=== PATIENT | female | born 1950 | race Caucasian/White ===

== ENCOUNTER → 2019-03-14 15:40 | Outpatient (CLI) | payer OTHER, SELFPAY ==
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
== END ==
PROVIDERS: PCP Internal Medicine; Visit Provider Chiropractor
DX: M50.320 Other cervical disc degeneration, mid-cervical region, unspecified level (principal); M47.812 Spondylosis without myelopathy or radiculopathy, cervical region
CPT/HCPCS: 72050

== ENCOUNTER → 2020-04-18 15:18 | Outpatient (CLI) | payer MEDICARE, OTHER, SELFPAY ==
--- NOTE | 2020-04-18 15:25 | DI.RAD.S_ITS ---
PROCEDURE: XR LUMBAR SPINE 2-3V INDICATIONS: OSTEOARTHRITIS TECHNIQUE: 2 views of the lumbar spine were acquired. COMPARISON: None. FINDINGS: Bones: There are 5 [id number] lumbar vertebral bodies. There is grade 1 L4 on L5 anterolisthesis. Mild intervertebral disc space narrowing and facet sclerosis is present from L3-S1. No compression deformities. Soft tissues: Overlying bowel gas pattern is normal. No suspicious soft tissue calcifications. IMPRESSION: Mild osteoarthritis and spondylolisthesis. Dictated by: Kaylin Dickerson M.D. on 04/18/2020 at 16:23 Approved by: Kaylin Dickerson M.D. on 04/18/2020 at 16:24
--- NOTE | 2020-04-18 15:25 | DI.RAD.S_ITS ---
PROCEDURE: XR HIP W PEL IF DONE BILAT 2V INDICATIONS: OSTEOARTHRITIS TECHNIQUE: AP pelvis with lateral view(s) of the bilateral hip(s). COMPARISON: None. FINDINGS: Bones: No fractures or dislocations. Pelvic ring appears intact. No suspicious bony lesions. Right hip arthroplasty is intact. Soft tissues: The visualized bowel gas pattern is normal. No suspicious soft tissue calcifications. IMPRESSION: No acute radiographic findings. No joint space narrowing or osteophytosis to suggest left hip osteoarthritis. Dictated by: Kaylin Dickerson M.D. on 04/18/2020 at 16:22 Approved by: Kaylin Dickerson M.D. on 04/18/2020 at 16:23
--- NOTE | 2020-04-18 15:25 | DI.RAD.S_ITS ---
PROCEDURE: XR KNEE RT 3V INDICATIONS: OSTEOARTHRITIS TECHNIQUE: 3 views of the knee were acquired. COMPARISON: None. FINDINGS: Bones: There is mild femorotibial joint space narrowing. No acute fracture or dislocation. Soft tissues: No joint effusion. No suspicious soft tissue calcifications. IMPRESSION: Mild osteoarthritis. Dictated by: Kaylin Dickerson M.D. on 04/18/2020 at 16:23 Approved by: Kaylin Dickerson M.D. on 04/18/2020 at 16:23
== END ==
PROVIDERS: PCP Internal Medicine; Referring Provider Internal Medicine; Visit Provider Internal Medicine
DX: M17.11 Unilateral primary osteoarthritis, right knee (principal); M47.816 Spondylosis without myelopathy or radiculopathy, lumbar region; M43.16 Spondylolisthesis, lumbar region; Z96.641 Presence of right artificial hip joint
CPT/HCPCS: 72100; 73521; 73562

== ENCOUNTER → 2020-05-13 15:48 | Outpatient (CLI) | payer MEDICARE, OTHER, SELFPAY ==
--- NOTE | 2020-05-13 | DI.MG.S_ITS ---
BILATERAL DIGITAL SCREENING MAMMOGRAM 3D/2D WITH CAD: 05/13/2020 CLINICAL: Routine screening. Baseline exam. No prior exams were available for comparison. The tissue of both breasts is heterogeneously dense. This may lower the sensitivity of mammography. Current study was also evaluated with a Computer Aided Detection (CAD) system. There is a focal asymmetry in the left breast at 11 o'clock posterior depth. No other significant masses, calcifications, or other findings are seen in either breast. IMPRESSION: INCOMPLETE: NEEDS ADDITIONAL IMAGING EVALUATION The focal asymmetry in the left breast is indeterminate. Additional views with possible ultrasound are recommended. This exam was interpreted at Station ID: [id number]. NOTE: For mammograms, a report in lay terms will be sent to the patient. Approximately 15% of breast malignancies will not be visualized mammographically. In the management of a palpable breast mass, a negative mammogram must not discourage biopsy of a clinically suspicious lesion. Electronically Signed By: Kaylin Dickerson M.D. lk/:05/13/2020 16:29:03 letter sent: Additional Imaging Needed ACR BI-RADS Category 0: Incomplete [id number]
== END ==
PROVIDERS: PCP Internal Medicine; Referring Provider Internal Medicine; Visit Provider Internal Medicine
DX: Z12.31 Encounter for screening mammogram for malignant neoplasm of breast (principal)
CPT/HCPCS: 77063; 77067

== ENCOUNTER → 2022-01-06 09:46 | Outpatient (CLI) | payer MEDICARE, OTHER, SELFPAY ==
[2022-01-06 10:44] LABS: Hematocrit 39.5 % (36-46); Hemoglobin 13.3 g/dL (12.0-16.0); Mean Corpuscular HGB Conc 33.7 % (30-36); Mean Corpuscular Hemoglobin 30.7 PG (26-34); Mean Corpuscular Volume 91.1 fL (80-100); Platelet Count 212 X10^3/uL (150-400); Red Blood Cell Count 4.34 X10^6/uL (4.0-5.2); Red Cell Distribution Width 12.6 % (11.6-14.8)
[2022-01-06 12:44] LABS: Alanine Aminotransferase 30 IU/L (<35); Albumin 4.3 g/dL (3.5-5.0); Albumin Globulin Ratio 1.5 (1.0-2.8); Alkaline Phosphatase 73 U/L (38-126); Aspartate Aminotransferase 38 IU/L (14-36); BUN Creatinine Ratio 24.6 (6-22); Bilirubin Total 0.6 mg/dL (0.2-1.3); Blood Urea Nitrogen 15 mg/dL (7-17); Calcium 8.9 mg/dL (8.4-10.2); Carbon Dioxide 28 mmol/L (22-32); Chloride 101 mmol/L (98-107); Cholesterol 242 mg/dL (140-199); Estimated Glomerular Filt Rate > 60 mL/min (>60); Globulin 2.9 g/dL (1.7-4.1); Glucose 85 mg/dL (80-110); HDL Cholesterol 77 mg/dL (40-60); HEMOLYSIS < 15 (0-50); LDL Cholesterol Calculated 150 mg/dL (<100); Potassium 4.3 mmol/L (3.4-5.1); Sodium 136 mmol/L (137-145); Total Protein 7.2 g/dL (6.3-8.2); Triglycerides 73 mg/dL (35-150)
[2022-01-06 13:10] LABS: TSH w/ Reflex to FT4 1.19 uIU/mL (0.47-4.68)
== END ==
PROVIDERS: PCP Internal Medicine; Referring Provider Internal Medicine; Visit Provider Internal Medicine
DX: E78.2 Mixed hyperlipidemia (principal); M15.9 Polyosteoarthritis, unspecified
CPT/HCPCS: 36415; 80053; 80061; 84443; 85027

== ENCOUNTER → 2022-03-24 14:05 | Outpatient (CLI) | payer MEDICARE, OTHER, SELFPAY ==
--- NOTE | 2022-03-24 14:06 | DI.RAD.S_ITS ---
PROCEDURE: XR DEXA AXIAL SKELETON INDICATIONS: post-menopausal COMPARISON: None. FINDINGS: This blank DEXA report has been sent in error by the PACS system. The correct and complete report will be forthcoming in 1-2 days. Thank you for your patience and understanding. Dictated by: Berry Raymond M.D. on 03/24/2022 at 16:19 Approved by: Berry Raymond M.D. on 03/24/2022 at 16:19
== END ==
PROVIDERS: PCP Internal Medicine; Referring Provider Internal Medicine; Visit Provider Internal Medicine
DX: Z78.0 Asymptomatic menopausal state (principal); Z13.820 Encounter for screening for osteoporosis; M81.0 Age-related osteoporosis without current pathological fracture
CPT/HCPCS: 77080; 77081

== ENCOUNTER → 2022-04-27 13:30 | Outpatient (CLI) | payer MEDICARE, OTHER, SELFPAY ==
--- NOTE | 2022-04-27 13:33 | DI.RAD.S_ITS ---
PROCEDURE: XR HIP W PEL IF DONE LT MIN 4V INDICATIONS: hip pain TECHNIQUE: AP pelvis and lateral view of the right hip acquired. COMPARISON: [facility], [place], XR HIP W PEL IF DONE BILAT 2V, 04/18/2020, 15:17. FINDINGS: Bones: Patient is status post right hip arthroplasty, with hardware components in expected positions. The hip joint appears congruent. The visualized bony structures appear intact. Soft tissues: Overlying postoperative changes are noted. No suspicious soft tissue densities. IMPRESSION: 1. Postoperative changes of total right hip replacement. 2. No acute abnormality. Dictated by: Vineet Melvin M.D. on 04/27/2022 at 16:38 Approved by: Vineet Melvin M.D. on 04/27/2022 at 16:40
== END ==
PROVIDERS: PCP Internal Medicine; Referring Provider Internal Medicine; Visit Provider Internal Medicine
DX: M48.07 Spinal stenosis, lumbosacral region (principal); M15.9 Polyosteoarthritis, unspecified; M25.551 Pain in right hip; M25.552 Pain in left hip; Z96.641 Presence of right artificial hip joint
CPT/HCPCS: 73522

== ENCOUNTER → 2022-06-18 09:25 | Outpatient (CLI) | payer MEDICARE, OTHER, SELFPAY ==
[2022-06-18 12:56] LABS: Appearance Urine UA CLEAR; Bilirubin Urine UA NEGATIVE (NEGATIVE); Color Urine UA YELLOW; Glucose Urine UA TRACE g/dL (Negative); Ketones Urine UA NEGATIVE (NEGATIVE); Leukocyte Esterase Urine UA NEGATIVE (NEGATIVE); Nitrite Urine UA NEGATIVE (Negative); Occult Blood Urine UA 1+ (Negative); Protein Urine UA NEGATIVE (Negative); Specific Gravity Urine UA <=1.005 (1.000-1.035); Urobilinogen Urine UA 0.2 E.U./dL (0.2)
[2022-06-18 13:06] LABS: pH Urine UA 5.5 (4.5-8.0)
[2022-06-18 13:17] LABS: Bacteria Urine None Seen; Culture Indicated Urine Cult Not Indicated; RBC Urine 0-1/HPF (0-5/HPF); Squamous Epithelial Cell Urine None Seen (0-5/HPF); WBC Urine None Seen (0-5/HPF)
== END ==
PROVIDERS: PCP Internal Medicine; Referring Provider Internal Medicine; Visit Provider Internal Medicine
DX: R30.0 Dysuria (principal)
CPT/HCPCS: 81001

== ENCOUNTER → 2022-08-13 09:10 | Outpatient (CLI) | payer MEDICARE, OTHER, SELFPAY ==
[2022-08-13 10:11] LABS: Hematocrit 36.6 % (36-46); Hemoglobin 12.4 g/dL (12.0-16.0); Mean Corpuscular HGB Conc 33.9 % (30-36); Mean Corpuscular Hemoglobin 30.8 PG (26-34); Platelet Count 277 X10^3/uL (150-400); Red Blood Cell Count 4.03 X10^6/uL (4.0-5.2); Red Cell Distribution Width 13.8 % (11.6-14.8); White Blood Cell Count 6.1 X10^3/uL (4.5-11.0)
[2022-08-13 10:35] LABS: Alanine Aminotransferase 18 IU/L (<35); Albumin 3.9 g/dL (3.5-5.0); Albumin Globulin Ratio 1.3 (1.0-2.8); Alkaline Phosphatase 92 U/L (38-126); Aspartate Aminotransferase 23 IU/L (14-36); BUN Creatinine Ratio 17.7 (6-22); Bilirubin Total 0.4 mg/dL (0.2-1.3); Blood Urea Nitrogen 11 mg/dL (7-17); Calcium 9.1 mg/dL (8.4-10.2); Carbon Dioxide 30 mmol/L (22-32); Chloride 97 mmol/L (98-107); Estimated Glomerular Filt Rate > 60 mL/min (>60); Glucose 82 mg/dL (80-110); HEMOLYSIS < 15 (0-50); Potassium 4.1 mmol/L (3.4-5.1); Sodium 136 mmol/L (137-145); Total Protein 6.9 g/dL (6.3-8.2)
[2022-08-13 11:05] LABS: Vitamin D 25 Hydroxy (D3) 64.7 ng/mL (30.0-100.0)
== END ==
PROVIDERS: PCP Internal Medicine; Referring Provider Internal Medicine; Visit Provider Internal Medicine
DX: R53.83 Other fatigue (principal); E55.9 Vitamin D deficiency, unspecified
CPT/HCPCS: 36415; 80053; 82306; 84439; 84443; 85027

== ENCOUNTER 2025-01-24 13:45 | Outpatient (RCR) | payer MEDICARE, OTHER, SELFPAY ==
--- NOTE | 2024-11-13 16:00 | PT.OIE ---
Current Diagnoses Stress incontinence (female) (male) (11/13/24) Incomplete uterovaginal prolapse (11/13/24) Pelvic muscle wasting (11/13/24) Past Medical History (Last Updated 01/12/23 @ 11:47 by Ranulfo Jack MD) Age-related osteoporosis without current pathological fracture Allergic rhinitis Cataracts, bilateral Chicken pox Essential hypertension History of colonic polyps Lumbar adjacent segment disease with spondylolisthesis Measles Migraines Mixed hyperlipidemia Mumps Primary osteoarthritis involving multiple joints Spinal stenosis, lumbosacral region Tinnitus Past Surgical History (Last Reviewed 01/12/23 @ 02:11 by Ranulfo Jack MD) Anesthesia History of right hip replacement (~06/2017) History of tonsillectomy S/P laminectomy Status post breast biopsy Visit Care Team Role Provider Type Ranulfo Jack MD Primary Care Provider Physician Specialty: Internal Medicine Address: [address] [place] [address] Email: [email or web address] Pat Samson MD Attending Provider Non-Staff Family Provider Referring Provider Specialty: Family Practice Address: [address] [place] [address] Email: Physical Therapy Initial Evaluation PT-OP-A Visit Information Start: 11/12/24 08:36 Freq: Status: Active Protocol: Document 11/13/24 14:32 [facility] (Rec: 11/13/24 14:57 [facility] [id number]) Out-Patient Physical Therapy Visit Information Visit Information Visit Type Initial Evaluation Visit Start Time 14:30 Visit Stop Time 15:15 Visit Number 1 Evaluation Information Evaluation Date 11/13/24 PT-OP-B Current Condition Start: 11/12/24 08:36 Freq: Status: Active Protocol: Document 11/13/24 14:32 [facility] (Rec: 11/13/24 14:57 [facility] [id number]) Current Condition History of Current Condition Onset Date 3-6 months ago Current Complaints pelvic pressure and heaviness History of Current Condition pt reports approx 3-6 months ago she started feeling prolapse symptoms, before that she had a very bad cough and was moving. She was in [place] last April and she came down with a bad cough prior to coming back to the [facility]. 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 The leakage happens when she doesn't get to the bathroom soon enough. She at times experiences urgency. She did get a prescription from urology for estrogen cream but hasn't been using it yet. Pt reports when she wakes up in the am she feels fine and by the end of the day she is experiencing a lot of pressure Treatment Goals Patient/Caregiver Goals Treatment goals include reducing pelvic pressure and heaviness PT-OP-C Subjective Start: 11/12/24 08:36 Freq: Status: Active Protocol: Document 11/13/24 14:30 [facility] (Rec: 11/15/24 15:03 [facility] [id number]) Patient Questionnaires Pelvic Pain and Urgency/Frequency Patient Symptom Scale Pelvic Pain Score 9 PT-OP-I Pelvic Floor Start: 11/12/24 08:36 Freq: Status: Active Protocol: Document 11/13/24 14:30 [facility] (Rec: 11/15/24 15:06 [facility] [id number]) Pelvic Floor Assessment Pelvic Clock Pelvic Clock 12-3 Atrophy Pelvic Clock 3-6 Atrophy Pelvic Clock 6-9 Atrophy Pelvic Clock 9-12 Atrophy Prolapse Uterine Prolapse Grade 2 Cystocele Grade 2 Prolapse Comments uterovaginal prolapse Contraction Ability Voluntary Contraction Weak Voluntary Relaxation Weak Manual Muscle Testing Left 2 Manual Muscle Testing Right 2 Manual Muscle Testing Anterior 2 Manual Muscle Testing Posterior 2 Muscle Endurance (Seconds) 3 Comments Pelvic Floor Comments vaginal atrophy, levator ani weakness and decreased endurance PT-OP-Q Treatments Start: 11/12/24 08:36 Freq: Status: Active Protocol: Document 11/13/24 14:32 [facility] (Rec: 11/13/24 14:57 [facility] [id number]) Therapeutic Exercises Supine Exercises pelvic floor long holds Supine Exercise Name pt has a yoga block at home to use as a assist Reps/Minutes 10 reps holding 10 seconds and relax x 10 sec Comments pt was also cued with a ball for adductor assist Self-Care/Home Management Treatment Education Patient Education Pain Management Other Education pt was educated in using a wedge to decompress the pelvis and also for when she is doing her pelvic floor exercises. PT-OP-T Assessment and Plan Start: 11/12/24 08:36 Freq: Status: Active Protocol: Document 11/13/24 14:30 [facility] (Rec: 11/13/24 14:57 [facility] [id number]) Physical Therapy Assessment Rehab Potential Rehabilitation Potential Excellent Evaluation Complexity Number of Personal Factors/Comorbidities 1-2 Number of Body Systems Impaired 3 Clinical Presentation at Evaluation Evolving Impairments Impairments Activity Tolerance,Functional Activities,Pain,Soft Tissue Mobility,Strength,Tone Other Impairments pelvic pressure and heaviness from bladder prolapse that is worse at the end of each day Urinary stress incontinence approx 4 times per week Goals 3 Impairment Pelvic pressure and heaviness with pelvic organ prolapse Automation Operator Goal (LTG) Mauricio reports decreased complaints of pelvic pressure and heaviness and is able to brace with her pelvic floor prior to coughing and lifting activities LTG Duration 12 weeks 2 Impairment Decreased pelvic floor endurance Short Term Goal (STG) Mauricio is able to sustain a pelvic floor contraction in supine x 10 seconds STG Duration 4 weeks Skilled Nursing Goal (LTG) Mauricio is able to sustain a pelvic floor contraction in sitting x 5 seconds LTG Duration 8 weeks One Impairment vaginal atrophy with pelvic floor weakness Short Term Goal (STG) pt is educated on pelvic floor strengthening exercises to improve strength and tone of the pelvic floor STG Duration 4 weeks Skilled Nursing Goal (LTG) Mauricio presents with improved strength and tone of the pelvic floor and her MMT is improved to 3/5 or better for pelvic floor contractions LTG Duration 12 weeks Assessment Summary Assessment Mauricio is a 73 year female referred to PT today with chief complaint of pelvic pressure and heaviness with pelvic organ prolapse. Her heaviness is worse at the end of the day. She is also experiencing urinary stress incontinence approx 4 times per week. She experiences leakage that includes wetting through the underwear. If she waits to long to void she will also experience leakage. Her symptoms began 3-6 months ago after she had a bad cough for a period of time and then was moving and lifting more than she was used to. Mauricio notes she has been given estrogen cream but hasn't been using it yet. I did encourage her to use the estrogen cream as it can be very helpful with the vaginal atrophy With pelvic floor exam she presents with atrophy of the pelvic floor. She is weak throughout the pelvic floor muscles and test 2/5 MMT. Mauricio presents with decreased endurance of the pelvic floor and has difficulty holding more than 4 seconds in supine. I did use adductor assist today to help her facilitate her pelvic floor and she did well with this. She was also shown how to decompress her pelvis using a wedge to take pressure off and rest her pelvis. Mauricio is a good candidate for Pelvic floor PT. Physical Therapy Plan Frequency and Duration Frequency of Treatment 1x/Week Duration of treatment (weeks) 12 Plan of Care Start Date 11/13/24 Plan of Care End Date 02/05/25 Therapeutic Interventions Therapeutic Interventions Home Exercise Program,Manual Therapy,Neuromuscular Re- education,Self-Care/Home Management,Soft Tissue Mobilization,Therapeutic Exercises Modalities Biofeedback Next Visit Focus/Plan Next Note Type Treatment Note Next Visit Plan check in with how pt did with pelvic decompression positions pelvic floor strength and endurance training next visit
--- NOTE | 2024-11-21 13:43 | PT.OTN ---
Current Diagnoses Stress incontinence (female) (male) (11/20/24) Incomplete uterovaginal prolapse (11/20/24) Pelvic muscle wasting (11/20/24) Physical Therapy Treatment Note PT-OP-A Visit Information Start: 11/12/24 08:36 Freq: Status: Active Protocol: Document 11/20/24 14:35 [facility] (Rec: 11/20/24 15:27 [facility] [id number]) Out-Patient Physical Therapy Visit Information Visit Information Visit Type Treatment Note Visit Start Time 14:35 Visit Stop Time 15:15 Visit Number 2 Evaluation Information Evaluation Date 11/13/24 PT-OP-B Current Condition Start: 11/12/24 08:36 Freq: Status: Active Protocol: Document 11/13/24 14:32 [facility] (Rec: 11/13/24 14:57 [facility] [id number]) Current Condition History of Current Condition Onset Date 3-6 months ago Current Complaints pelvic pressure and heaviness History of Current Condition pt reports approx 3-6 months ago she started feeling prolapse symptoms, before that she had a very bad cough and was moving. She was in [place] last April and she came down with a bad cough prior to coming back to the [facility]. 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 The leakage happens when she doesn't get to the bathroom soon enough. She at times experiences urgency. She did get a prescription from urology for estrogen cream but hasn't been using it yet. Pt reports when she wakes up in the am she feels fine and by the end of the day she is experiencing a lot of pressure Treatment Goals Patient/Caregiver Goals Treatment goals include reducing pelvic pressure and heaviness PT-OP-C Subjective Start: 11/12/24 08:36 Freq: Status: Active Protocol: Document 11/20/24 14:35 [facility] (Rec: 11/20/24 15:27 [facility] [id number]) OP-PT Subjective Patient Comments Patient Comments pt notes she has tried the yoga block as a assist as well PT-OP-I Pelvic Floor Start: 11/12/24 08:36 Freq: Status: Active Protocol: Document 11/13/24 14:30 [facility] (Rec: 11/15/24 15:06 [facility] [id number]) Pelvic Floor Assessment Pelvic Clock Pelvic Clock 12-3 Atrophy Pelvic Clock 3-6 Atrophy Pelvic Clock 6-9 Atrophy Pelvic Clock 9-12 Atrophy Prolapse Uterine Prolapse Grade 2 Cystocele Grade 2 Prolapse Comments uterovaginal prolapse Contraction Ability Voluntary Contraction Weak Voluntary Relaxation Weak Manual Muscle Testing Left 2 Manual Muscle Testing Right 2 Manual Muscle Testing Anterior 2 Manual Muscle Testing Posterior 2 Muscle Endurance (Seconds) 3 Comments Pelvic Floor Comments vaginal atrophy, levator ani weakness and decreased endurance PT-OP-Q Treatments Start: 11/12/24 08:36 Freq: Status: Active Protocol: Document 11/20/24 14:35 [facility] (Rec: 11/20/24 15:27 [facility] [id number]) Therapeutic Exercises Supine Exercises pelvic floor long holds Supine Exercise Name pt notes she is holding her breath Reps/Minutes 10 reps holding 10 seconds and relax x 10 sec Comments average 13 and max of 36 PT-OP-T Assessment and Plan Start: 11/12/24 08:36 Freq: Status: Active Protocol: Document 11/20/24 13:40 [facility] (Rec: 11/21/24 13:43 [facility] [id number]) Physical Therapy Assessment Assessment Summary Assessment I initiated emg biofeeback for Mauricio today and she was able to isolate her pelvic floor. The sensor was not comfortable for her so we may not be using the biofeedback each visit. I added in hip exercises and Mauricio tolerated this well Physical Therapy Plan Frequency and Duration Frequency of Treatment 1x/Week Duration of treatment (weeks) 12 Plan of Care Start Date 11/13/24 Plan of Care End Date 02/05/25 Therapeutic Interventions Therapeutic Interventions Home Exercise Program,Manual Therapy,Neuromuscular Re- education,Self-Care/Home Management,Soft Tissue Mobilization,Therapeutic Exercises Modalities Biofeedback Next Visit Focus/Plan Next Note Type Treatment Note Next Visit Plan pelvic floor strength and endurance training
--- NOTE | 2024-11-29 16:40 | PT.OTN ---
Current Diagnoses Stress incontinence (female) (male) (11/28/24) Incomplete uterovaginal prolapse (11/28/24) Pelvic muscle wasting (11/28/24) Physical Therapy Treatment Note PT-OP-A Visit Information Start: 11/12/24 08:36 Freq: Status: Active Protocol: Document 11/28/24 10:46 [facility] (Rec: 11/28/24 10:54 [facility] [id number]) Out-Patient Physical Therapy Visit Information Visit Information Visit Type Treatment Note Visit Start Time 10:45 Visit Stop Time 11:30 Visit Number 3 Evaluation Information Evaluation Date 11/13/24 PT-OP-B Current Condition Start: 11/12/24 08:36 Freq: Status: Active Protocol: Document 11/13/24 14:32 [facility] (Rec: 11/13/24 14:57 [facility] [id number]) Current Condition History of Current Condition Onset Date 3-6 months ago Current Complaints pelvic pressure and heaviness History of Current Condition pt reports approx 3-6 months ago she started feeling prolapse symptoms, before that she had a very bad cough and was moving. She was in [place] last April and she came down with a bad cough prior to coming back to the [facility]. 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 The leakage happens when she doesn't get to the bathroom soon enough. She at times experiences urgency. She did get a prescription from urology for estrogen cream but hasn't been using it yet. Pt reports when she wakes up in the am she feels fine and by the end of the day she is experiencing a lot of pressure Treatment Goals Patient/Caregiver Goals Treatment goals include reducing pelvic pressure and heaviness PT-OP-C Subjective Start: 11/12/24 08:36 Freq: Status: Active Protocol: Document 11/28/24 10:46 [facility] (Rec: 11/28/24 10:54 [facility] [id number]) OP-PT Subjective Patient Comments Patient Comments pt notes that the sensor irritated her vaginal tissue, she does feel that things are getting better and there is not as much pressure at night. She does feel that with stress she can feel more pressure. When she walks it doesn't seem to fall as much. PT-OP-I Pelvic Floor Start: 11/12/24 08:36 Freq: Status: Active Protocol: Document 11/13/24 14:30 [facility] (Rec: 11/15/24 15:06 [facility] [id number]) Pelvic Floor Assessment Pelvic Clock Pelvic Clock 12-3 Atrophy Pelvic Clock 3-6 Atrophy Pelvic Clock 6-9 Atrophy Pelvic Clock 9-12 Atrophy Prolapse Uterine Prolapse Grade 2 Cystocele Grade 2 Prolapse Comments uterovaginal prolapse Contraction Ability Voluntary Contraction Weak Voluntary Relaxation Weak Manual Muscle Testing Left 2 Manual Muscle Testing Right 2 Manual Muscle Testing Anterior 2 Manual Muscle Testing Posterior 2 Muscle Endurance (Seconds) 3 Comments Pelvic Floor Comments vaginal atrophy, levator ani weakness and decreased endurance PT-OP-Q Treatments Start: 11/12/24 08:36 Freq: Status: Active Protocol: Document 11/28/24 13:25 [facility] (Rec: 11/28/24 13:26 [facility] [id number]) Manual Therapy Treatment Consent Patient gave verbal consent for manual Yes treatment Soft Tissue Mobilization MFR over the suprapubic fascia Comments worked with pt pelvis elevated on wedge for pelvic decompression, suprapubic fascial release and bladder mobilization PT-OP-T Assessment and Plan Start: 11/12/24 08:36 Freq: Status: Active Protocol: Document 11/28/24 10:45 [facility] (Rec: 11/29/24 16:39 [facility] [id number]) Physical Therapy Assessment Assessment Summary Assessment Mauricio did not wish to use the sensor for EMG biofeedback today but will return to it next visit. I did start with MFR over the suprapubic fascia and mobilized the bladder while pt was in a position of pelvic decompression over the bolster. She tolerated this well. We worked on pelvic floor isolation without upper abdominal substitution. Physical Therapy Plan Frequency and Duration Frequency of Treatment 1x/Week Duration of treatment (weeks) 12 Plan of Care Start Date 11/13/24 Plan of Care End Date 02/05/25 Next Visit Focus/Plan Next Note Type Treatment Note Next Visit Plan return to EMG biofeedback next visit if pt agrees working on pelvic floor endurance training
--- NOTE | 2024-12-06 16:23 | PT.OTN ---
Current Diagnoses Stress incontinence (female) (male) (12/06/24) Incomplete uterovaginal prolapse (12/06/24) Pelvic muscle wasting (12/06/24) Physical Therapy Treatment Note PT-OP-A Visit Information Start: 11/12/24 08:36 Freq: Status: Active Protocol: Document 12/06/24 15:22 [facility] (Rec: 12/06/24 16:12 [facility] [id number]) Out-Patient Physical Therapy Visit Information Visit Information Visit Type Treatment Note Visit Start Time 13:20 Visit Stop Time 14:00 Visit Number 4 Evaluation Information Evaluation Date 11/13/24 PT-OP-B Current Condition Start: 11/12/24 08:36 Freq: Status: Active Protocol: Document 11/13/24 14:32 [facility] (Rec: 11/13/24 14:57 [facility] [id number]) Current Condition History of Current Condition Onset Date 3-6 months ago Current Complaints pelvic pressure and heaviness History of Current Condition pt reports approx 3-6 months ago she started feeling prolapse symptoms, before that she had a very bad cough and was moving. She was in [place] last April and she came down with a bad cough prior to coming back to the [facility]. 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 The leakage happens when she doesn't get to the bathroom soon enough. She at times experiences urgency. She did get a prescription from urology for estrogen cream but hasn't been using it yet. Pt reports when she wakes up in the am she feels fine and by the end of the day she is experiencing a lot of pressure Treatment Goals Patient/Caregiver Goals Treatment goals include reducing pelvic pressure and heaviness PT-OP-C Subjective Start: 11/12/24 08:36 Freq: Status: Active Protocol: Document 12/06/24 15:22 [facility] (Rec: 12/06/24 16:12 [facility] [id number]) OP-PT Subjective Patient Comments Patient Comments pt feels that she didn't get in her exercises this week as much she is using the estrogen creme She is still feeling symptoms she went walking this week and feel 2 times PT-OP-I Pelvic Floor Start: 11/12/24 08:36 Freq: Status: Active Protocol: Document 11/13/24 14:30 [facility] (Rec: 11/15/24 15:06 [facility] [id number]) Pelvic Floor Assessment Pelvic Clock Pelvic Clock 12-3 Atrophy Pelvic Clock 3-6 Atrophy Pelvic Clock 6-9 Atrophy Pelvic Clock 9-12 Atrophy Prolapse Uterine Prolapse Grade 2 Cystocele Grade 2 Prolapse Comments uterovaginal prolapse Contraction Ability Voluntary Contraction Weak Voluntary Relaxation Weak Manual Muscle Testing Left 2 Manual Muscle Testing Right 2 Manual Muscle Testing Anterior 2 Manual Muscle Testing Posterior 2 Muscle Endurance (Seconds) 3 Comments Pelvic Floor Comments vaginal atrophy, levator ani weakness and decreased endurance PT-OP-Q Treatments Start: 11/12/24 08:36 Freq: Status: Active Protocol: Document 12/06/24 15:22 [facility] (Rec: 12/06/24 16:12 [facility] [id number]) Therapeutic Exercises Supine Exercises hooklying clam shells Reps/Minutes 2 x 10 pelvic floor long holds Supine Exercise Name pt notes she is holding her breath Reps/Minutes 10 reps holding 10 seconds and relax x 10 sec Comments average 14.5 and max of 26.5 Sitting Exercises clam shells Reps/Minutes 2 x 10 reps with theraband PT-OP-T Assessment and Plan Start: 11/12/24 08:36 Freq: Status: Active Protocol: Document 12/06/24 16:21 [facility] (Rec: 12/06/24 16:23 [facility] [id number]) Physical Therapy Assessment Assessment Summary Assessment Mauricio was able to use the rectal sensor vaginally today and this worked much better for her and she did not experience the tissue irritation she did with larger sensor. Strength is improving but endurance is still a challenge. We increased her hooklying clam shells to sidelying clam shells. She is stronger with left leg Physical Therapy Plan Frequency and Duration Frequency of Treatment 1x/Week Duration of treatment (weeks) 12 Plan of Care Start Date 11/13/24 Plan of Care End Date 02/05/25 Therapeutic Interventions Therapeutic Interventions Home Exercise Program,Manual Therapy,Neuromuscular Re- education,Self-Care/Home Management,Soft Tissue Mobilization,Therapeutic Exercises Modalities Biofeedback Next Visit Focus/Plan Next Note Type Treatment Note Next Visit Plan continue with EMG biofeedback and pelvic floor endurance strengthening and add in templates for eccentric control and coordination next visit
--- NOTE | 2024-12-18 17:06 | PT.OTN ---
Current Diagnoses Stress incontinence (female) (male) (12/18/24) Incomplete uterovaginal prolapse (12/18/24) Pelvic muscle wasting (12/18/24) Physical Therapy Treatment Note PT-OP-A Visit Information Start: 11/12/24 08:36 Freq: Status: Active Protocol: Document 12/18/24 13:42 [facility] (Rec: 12/18/24 14:32 [facility] [id number]) Out-Patient Physical Therapy Visit Information Visit Information Visit Type Treatment Note Visit Start Time 13:45 Visit Stop Time 14:30 Visit Number 5 Evaluation Information Evaluation Date 11/13/24 PT-OP-B Current Condition Start: 11/12/24 08:36 Freq: Status: Active Protocol: Document 11/13/24 14:32 [facility] (Rec: 11/13/24 14:57 [facility] [id number]) Current Condition History of Current Condition Onset Date 3-6 months ago Current Complaints pelvic pressure and heaviness History of Current Condition pt reports approx 3-6 months ago she started feeling prolapse symptoms, before that she had a very bad cough and was moving. She was in [place] last April and she came down with a bad cough prior to coming back to the [facility]. 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 The leakage happens when she doesn't get to the bathroom soon enough. She at times experiences urgency. She did get a prescription from urology for estrogen cream but hasn't been using it yet. Pt reports when she wakes up in the am she feels fine and by the end of the day she is experiencing a lot of pressure Treatment Goals Patient/Caregiver Goals Treatment goals include reducing pelvic pressure and heaviness PT-OP-C Subjective Start: 11/12/24 08:36 Freq: Status: Active Protocol: Document 12/18/24 13:42 [facility] (Rec: 12/18/24 14:32 [facility] [id number]) OP-PT Subjective Patient Comments Patient Comments pt notes by the evening she is fatigued, she feels the endurance is still difficult she is using the estrogen cream PT-OP-I Pelvic Floor Start: 11/12/24 08:36 Freq: Status: Active Protocol: Document 11/13/24 14:30 [facility] (Rec: 11/15/24 15:06 [facility] [id number]) Pelvic Floor Assessment Pelvic Clock Pelvic Clock 12-3 Atrophy Pelvic Clock 3-6 Atrophy Pelvic Clock 6-9 Atrophy Pelvic Clock 9-12 Atrophy Prolapse Uterine Prolapse Grade 2 Cystocele Grade 2 Prolapse Comments uterovaginal prolapse Contraction Ability Voluntary Contraction Weak Voluntary Relaxation Weak Manual Muscle Testing Left 2 Manual Muscle Testing Right 2 Manual Muscle Testing Anterior 2 Manual Muscle Testing Posterior 2 Muscle Endurance (Seconds) 3 Comments Pelvic Floor Comments vaginal atrophy, levator ani weakness and decreased endurance PT-OP-Q Treatments Start: 11/12/24 08:36 Freq: Status: Active Protocol: Document 12/18/24 13:42 [facility] (Rec: 12/18/24 14:32 [facility] [id number]) Therapeutic Exercises Supine Exercises bridges with ball squeeze Reps/Minutes x 10 pelvic floor with adductor assist Reps/Minutes x 8 Comments pt does better on her own with isolations hooklying clam shells Supine Exercise Name HEP pelvic floor long holds Comments average 19.9 max of 36 Sitting Exercises clam shells Sitting Exercise Name HEP Self-Care/Home Management Treatment Education Patient Education Home Exercise Program,Pain Management Other Education splinting for the perineum was reviewed with Mauricio and we discussed using a squatty potty as she still feels at times she needs to strain with bowel movements PT-OP-T Assessment and Plan Start: 11/12/24 08:36 Freq: Status: Active Protocol: Document 12/18/24 17:00 [facility] (Rec: 12/18/24 17:03 [facility] [id number]) Physical Therapy Assessment Goals 3 Impairment Pelvic pressure and heaviness with pelvic organ prolapse Freight Car Loader Goal (LTG) Mauricio reports decreased complaints of pelvic pressure and heaviness and is able to brace with her pelvic floor prior to coughing and lifting activities LTG Duration 12 weeks 2 Impairment Decreased pelvic floor endurance Short Term Goal (STG) Mauricio is able to sustain a pelvic floor contraction in supine x 10 seconds STG Duration 4 weeks Residential Goal (LTG) Mauricio is able to sustain a pelvic floor contraction in sitting x 5 seconds LTG Duration 8 weeks One Impairment vaginal atrophy with pelvic floor weakness Short Term Goal (STG) pt is educated on pelvic floor strengthening exercises to improve strength and tone of the pelvic floor STG Duration 4 weeks Freight Car Loader Goal (LTG) Mauricio presents with improved strength and tone of the pelvic floor and her MMT is improved to 3/5 or better for pelvic floor contractions LTG Duration 12 weeks Assessment Summary Assessment Mauricio is showing a good progress with both average and max strength on EMG biofeedback. Time was spent today discussing splinting for bowel movements as well as using a squatty potty as this is the time where she does feel she needs to strain some which may be placing pressure on her prolapse Physical Therapy Plan Frequency and Duration Frequency of Treatment 1x/Week Duration of treatment (weeks) 12 Plan of Care Start Date 11/13/24 Plan of Care End Date 02/05/25 Therapeutic Interventions Therapeutic Interventions Home Exercise Program,Manual Therapy,Neuromuscular Re- education,Self-Care/Home Management,Soft Tissue Mobilization,Therapeutic Exercises Modalities Biofeedback Next Visit Focus/Plan Next Note Type Treatment Note Next Visit Plan review how Mauricio did with the splinting for bowel movements and use of squatty potty, continue with pelvic floor strengthening.
--- NOTE | 2024-12-27 16:00 | PT.OTN ---
Current Diagnoses Stress incontinence (female) (male) (12/27/24) Incomplete uterovaginal prolapse (12/27/24) Pelvic muscle wasting (12/27/24) Physical Therapy Treatment Note PT-OP-A Visit Information Start: 11/12/24 08:36 Freq: Status: Active Protocol: Document 12/27/24 14:30 [facility] (Rec: 12/31/24 11:13 [facility] [id number]) Out-Patient Physical Therapy Visit Information Visit Information Visit Type Treatment Note Visit Note 30 min as pt was 15 min late for appt Visit Start Time 14:45 Visit Stop Time 15:15 Visit Number 6 Evaluation Information Evaluation Date 11/13/24 PT-OP-B Current Condition Start: 11/12/24 08:36 Freq: Status: Active Protocol: Document 11/13/24 14:32 [facility] (Rec: 11/13/24 14:57 [facility] [id number]) Current Condition History of Current Condition Onset Date 3-6 months ago Current Complaints pelvic pressure and heaviness History of Current Condition pt reports approx 3-6 months ago she started feeling prolapse symptoms, before that she had a very bad cough and was moving. She was in [place] last April and she came down with a bad cough prior to coming back to the [facility]. 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 The leakage happens when she doesn't get to the bathroom soon enough. She at times experiences urgency. She did get a prescription from urology for estrogen cream but hasn't been using it yet. Pt reports when she wakes up in the am she feels fine and by the end of the day she is experiencing a lot of pressure Treatment Goals Patient/Caregiver Goals Treatment goals include reducing pelvic pressure and heaviness PT-OP-I Pelvic Floor Start: 11/12/24 08:36 Freq: Status: Active Protocol: Document 11/13/24 14:30 [facility] (Rec: 11/15/24 15:06 [facility] [id number]) Pelvic Floor Assessment Pelvic Clock Pelvic Clock 12-3 Atrophy Pelvic Clock 3-6 Atrophy Pelvic Clock 6-9 Atrophy Pelvic Clock 9-12 Atrophy Prolapse Uterine Prolapse Grade 2 Cystocele Grade 2 Prolapse Comments uterovaginal prolapse Contraction Ability Voluntary Contraction Weak Voluntary Relaxation Weak Manual Muscle Testing Left 2 Manual Muscle Testing Right 2 Manual Muscle Testing Anterior 2 Manual Muscle Testing Posterior 2 Muscle Endurance (Seconds) 3 Comments Pelvic Floor Comments vaginal atrophy, levator ani weakness and decreased endurance PT-OP-Q Treatments Start: 11/12/24 08:36 Freq: Status: Active Protocol: Document 12/27/24 14:30 [facility] (Rec: 12/27/24 15:17 [facility] [id number]) Therapeutic Exercises Supine Exercises pelvic floor with adductor assist Reps/Minutes x 10 reps holding 10 seconds and relaxing 10 seconds Comments pt feels she does better with isolations vs the adductor assisit pelvic floor long holds Comments 9.4 uv and 19.8 uv max Self-Care/Home Management Treatment Education Patient Education Home Exercise Program,Pain Management Other Education time was spend discussing HEP and surgical options for Mauricio . She was given Dr. Canada's name as a referral for surgical consult PT-OP-T Assessment and Plan Start: 11/12/24 08:36 Freq: Status: Active Protocol: Document 12/27/24 14:30 [facility] (Rec: 12/31/24 11:24 [facility] [id number]) Physical Therapy Assessment Assessment Summary Assessment With EMG biofeedback readings today strength has not changed since Mauricio was seen last Physical Therapy Plan Frequency and Duration Frequency of Treatment 1x/Week Duration of treatment (weeks) 12 Plan of Care Start Date 11/13/24 Plan of Care End Date 02/05/25
--- NOTE | 2025-01-24 16:56 | PT.OTN ---
Current Diagnoses Stress incontinence (female) (male) (01/24/25) Incomplete uterovaginal prolapse (01/24/25) Pelvic muscle wasting (01/24/25) Physical Therapy Treatment Note PT-OP-A Visit Information Start: 11/12/24 08:36 Freq: Status: Active Protocol: Document 01/24/25 13:50 [facility] (Rec: 01/24/25 14:31 [facility] [id number]) Out-Patient Physical Therapy Visit Information Visit Information Visit Type Treatment Note Visit Start Time 13:45 Visit Stop Time 14:30 Visit Number 7 PT-OP-B Current Condition Start: 11/12/24 08:36 Freq: Status: Active Protocol: Document 11/13/24 14:32 [facility] (Rec: 11/13/24 14:57 [facility] [id number]) Current Condition History of Current Condition Onset Date 3-6 months ago Current Complaints pelvic pressure and heaviness History of Current pt reports approx 3-6 months ago she started feeling Condition prolapse symptoms, before that she had a very bad cough and was moving. She was in [place] last April and she came down with a bad cough prior to coming back to the [facility]. 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 The leakage happens when she doesn't get to the bathroom soon enough. She at times experiences urgency. She did get a prescription from urology for estrogen cream but hasn't been using it yet. Pt reports when she wakes up in the am she feels fine and by the end of the day she is experiencing a lot of pressure Treatment Goals Patient/Caregiver Treatment goals include reducing pelvic pressure and Goals heaviness PT-OP-C Subjective Start: 12/31/24 12:26 Freq: Status: Active Protocol: Document 01/24/25 13:50 [facility] (Rec: 01/24/25 14:31 [facility] [id number]) OP-PT Subjective Patient Comments Patient Comments symptoms come and go and she does have a appt with Dr Cavanaugh in March. Most morings she doesn't feel the pressure, it is night time. She isn't leaking with laughter or sneezing now. She is using the estrogen cream PT-OP-I Pelvic Floor Start: 11/12/24 08:36 Freq: Status: Active Protocol: Document 11/13/24 14:30 [facility] (Rec: 11/15/24 15:06 [facility] [id number]) Pelvic Floor Assessment Pelvic Clock Pelvic Clock 12-3 Atrophy Pelvic Clock 3-6 Atrophy Pelvic Clock 6-9 Atrophy Pelvic Clock 9-12 Atrophy Prolapse Uterine Prolapse Grade 2 Cystocele Grade 2 Prolapse Comments uterovaginal prolapse Contraction Ability Voluntary Weak Contraction Voluntary Relaxation Weak Manual Muscle 2 Testing Left Manual Muscle 2 Testing Right Manual Muscle 2 Testing Anterior Manual Muscle 2 Testing Posterior Muscle Endurance ( 3 Seconds) Comments Pelvic Floor vaginal atrophy, levator ani weakness and decreased Comments endurance PT-OP-Q Treatments Start: 11/12/24 08:36 Freq: Status: Active Protocol: Document 01/24/25 13:50 [facility] (Rec: 01/24/25 14:31 [facility] [id number]) Therapeutic Exercises Supine Exercises pelvic floor long holds Reps/Minutes 10 reps holding 10 seconds and relaxing 10 seconds Comments 27.2 average and 52.5 max Sitting Exercises clam shells Reps/Minutes 2 x 10 reps Self-Care/Home Management Treatment Education Patient Education Home Exercise Program,Pain Management Other Education time was spent discussing estrogen cream and increasing it to 2 times per weeks within plan of care from MD. review of HEP and pelvic decompression PT-OP-T Assessment and Plan Start: 11/12/24 08:36 Freq: Status: Active Protocol: Document 01/24/25 13:50 [facility] (Rec: 01/24/25 14:31 [facility] [id number]) Physical Therapy Assessment Goals 3 Impairment Pelvic pressure and heaviness with pelvic organ prolapse Detasseler Goal (LTG) Mauricio reports decreased complaints of pelvic pressure and heaviness and is able to brace with her pelvic floor prior to coughing and lifting activities Mauricio notes that her symptoms are no longer constant but more intermittent now. She does feel pressure by the end of the day LTG Duration 12 weeks 2 Impairment Decreased pelvic floor endurance Short Term Goal (STG Mauricio is able to sustain a pelvic floor contraction in ) supine x 10 seconds goal met STG Duration 4 weeks Care Home Goal (LTG) Mauricio is able to sustain a pelvic floor contraction in sitting x 5 seconds goal met LTG Duration 8 weeks One Impairment vaginal atrophy with pelvic floor weakness Short Term Goal (STG pt is educated on pelvic floor strengthening exercises ) to improve strength and tone of the pelvic floor goal met STG Duration 4 weeks Detasseler Goal (LTG) Mauricio presents with improved strength and tone of the pelvic floor and her MMT is improved to 3/5 or better for pelvic floor contractions goal met LTG Duration 12 weeks Assessment Summary Assessment Mauricio has shown good progress with pelvic floor strength and endurance. She is also using the vaginal estrogen cream. Symptoms are better but not fully resolved. She does feel pelvic pressure intermittently and mostly at the end of the day. She has a appt with Dr. Cavanaugh for surgical consult in March. At this point Mauricio is Ind with a HEP and will continue working on her own with her exercises. Physical Therapy Plan Discharge Physical Therapy Discharge Comments Mauricio is independent with a HEP for pelvic floor strengthening and has shown a good increase in pelvic floor strength
== END 2025-01-25 10:58 | disposition home or self-care (01) ==
LOC: PHYS 13:45
PROVIDERS: Family Provider Family Medicine; PCP Family Medicine; Referring Provider Family Medicine; Visit Provider Family Medicine
DX: N81.2 Incomplete uterovaginal prolapse (principal); N81.84 Pelvic muscle wasting; N39.3 Stress incontinence (female) (male)
CPT/HCPCS: 97110; 97140; 97162; 97535